=== PATIENT | male | born 1965 | race Caucasian/White ===

== ENCOUNTER 2025-01-28 03:23 | Emergency (ER) | payer MEDICAID | END 2025-01-28 03:29 | disposition left against medical advice (07) | LOC: EMS 03:24 | DX: T50.7X1A Poisoning by analeptics and opioid receptor antagonists, accidental (unintentional), initial encounter (principal); Z53.21 Procedure and treatment not carried out due to patient leaving prior to being seen by health care provider; Y92.89 Other specified places as the place of occurrence of the external cause ==

== ENCOUNTER 2025-07-20 14:12 | Emergency (ER) | payer OTHER ==
[~2025-07-20] VITALS: Ht 190.5 cm; Wt 86.8 kg
[~2025-07-20 14:12] MED LIST: ACET-2247 PO; MAGN-169 PO
[2025-07-20 15:22] VITALS: BP 143/91; PULSE 77; RESP 22; TEMP 98; O2SAT 98
[2025-07-20] MEDS: KETOROLAC TROMETHAMINE 30 MG/ML VIAL IM ONE (16:13)
== END 2025-07-20 18:23 ==
LOC: EMS 14:16
DX: S62.614A Displaced fracture of proximal phalanx of right ring finger, initial encounter for closed fracture (principal); I10 Essential (primary) hypertension; M25.562 Pain in left knee; M17.12 Unilateral primary osteoarthritis, left knee; Z85.038 Personal history of other malignant neoplasm of large intestine; F11.90 Opioid use, unspecified, uncomplicated; F15.90 Other stimulant use, unspecified, uncomplicated; Z79.899 Other long term (current) drug therapy; Z91.041 Radiographic dye allergy status; W18.39XA Other fall on same level, initial encounter; Y93.89 Activity, other specified; Y92.89 Other specified places as the place of occurrence of the external cause; Y99.8 Other external cause status
CPT/HCPCS: 99284; 73130; 73564; 29125; 96372; J1885